=== PATIENT | female | born 1955 | race Caucasian/White ===

== ENCOUNTER 2019-01-13 09:55 | Inpatient (IN) | payer OTHER, SELFPAY ==
[2019-01-13] VITALS (7 sets, daily range): BP systolic 101–152; BP diastolic 64–88; PULSE 66–77; RESP 14–18; TEMP 36.3–37.4; O2SAT 97–100; BMI 20.9
--- NOTE | 2019-01-13 10:22 | ED.ABDPAIN ---
HPI - Abdominal Pain General Chief Complaint: Abdominal Pain Stated Complaint: lower abd pain x7 days Time Seen by Provider: 01/13/19 09:58 Source: patient Mode of arrival: ambulatory Limitations: no limitations History of Present Illness HPI narrative: Patient is a 63-year-old female here for evaluation of approximately 7 days of bilateral lower abdomen pain. She states that she has not had any change in her bowel habits. No diarrhea. No vomiting. Symptoms were gradual onset. States she has had a colonoscopy in the past and was told that everything was ?okay ?she denies any urinary symptoms. She states that it does feel somewhat like when she has ovulated in the past but has been through menopause. No prior abdominal surgeries. Related Data Allergies Allergy/AdvReac Type Severity Reaction Status Date / Time Penicillins Allergy Mild Rash Verified 01/13/19 10:17 Sulfa (Sulfonamide Allergy Mild Rash Verified 01/13/19 10:17 Antibiotics) Review of Systems Constitutional Constitutional: Denies fever(s) ENT Ears, Nose, Mouth, and Throat: Denies vertigo and Denies dizziness Cardiovascular Cardiovascular: Denies chest pain and Denies dyspnea Respiratory Respiratory: Denies dyspnea Gastrointestinal Gastrointestinal: Reports abdominal pain, Denies change in bowel habits, Denies diarrhea, Denies nausea and Denies vomiting Genitourinary Genitourinary: Denies dysuria, Denies flank pain and Denies vaginal discharge Integumentary/Breasts Skin/Breast: Denies rash Neurologic Neurologic: Denies vertigo and Denies dizziness Hematologic/Lymphatic Hematologic/Lymphatic: Denies easy bleeding and Denies easy bruising [facility] Medical History Insomnia (Acute) Menopausal disorder (Acute) [place] fever (Acute) Surgical History H/O tubal ligation (Acute) Hx of LASIK (Acute) S/P ACL repair (Acute) S/P rotator cuff repair (Acute) Social History household members: spouse Smoking Status: Former smoker alcohol intake: current Social History household members: spouse Smoking Status: Former smoker alcohol intake: current Exam Initial Vital Signs Initial Vital Signs: Vital Signs Temperature 97.5 F L 01/13/19 10:00 Pulse Rate 77 01/13/19 10:00 Respiratory Rate 16 01/13/19 10:00 Blood Pressure 152/85 H 01/13/19 10:00 Pulse Oximetry 97 01/13/19 10:00 Const General: cooperative, comfortable and well developed Orientation: alert, awake and oriented x3 HENMT Head: normal to inspection and normocephalic Resp Effort & Inspection: normal respiratory effort Auscultation: clear to auscultation bilaterally Cardio Rate: regular rate Rhythm: regular rhythm GI Inspection: non-distended Palpation: soft, No firm and tender (Bilateral lower abdomen) Back/Spine/Pelvis Back: No CVA tenderness Skin Lesions: lesions noted Rashes: rash noted Neuro General: alert and awake Cognition: normal cognition Speech: speech normal Extrem General: normal to inspection, capillary refill normal and No edema Psych Appearance: grossly normal and well kempt Course Orders Ordered: ED Orders 01/13/19 10:10 EKG-12 Lead Stat 01/13/19 10:23 CT abdomen pelvis w con Stat 01/13/19 11:20 Complete Blood Count AUTO DIFF Stat Comprehensive Metabolic Panel Stat Lipase Stat 01/13/19 13:18 Consult to General Surgery Routine Acetaminophen (Tylenol) 650 mg PO Q6HR PRN PRN Reason: As Needed for Fever/Mild Pain Bupropion HCl (Wellbutrin Sr) 150 mg PO DAILY [facility] Gabapentin (Neurontin) 300 mg PO BEDTIME [place] Ciprofloxacin (Cipro) 400 mg in 200 mls @ 200 mls/hr IV NOW [facility] Last Admin: 01/13/19 14:59 Dose: 200 mls/hr Documented by: CWOOD Sodium Chloride (Normal Saline 0.9%) 1,000 mls @ 125 mls/hr IV CONT [place] Last Admin: 01/13/19 14:30 Dose: 125 mls/hr Documented by: CWOOD Metronidazole (Flagyl) 500 mg in 100 mls @ 100 mls/hr IV Q8H [facility] Discontinued Medications Enoxaparin Sodium (Lovenox) 40 mg SUBCUT DAILY [facility] Sodium Chloride (Normal Saline 0.9%) 1,000 mls @ 1,000 mls/hr IV [facility] ONE Stop: 01/13/19 11:22 Last Infusion: 01/13/19 12:16 Dose: 0 mls/hr Documented by: Admin: 01/13/19 11:20 Dose: 1,000 mls/hr Documented by: AYSE Metronidazole (Flagyl) 500 mg in 100 mls @ 100 mls/hr IV NOW ONE Stop: 01/13/19 14:15 Last Infusion: 01/13/19 13:49 Dose: 0 mls/hr Documented by: Admin: 01/13/19 13:29 Dose: 100 mls/hr Documented by: SERGE Vital Signs Vital signs: Vital Signs - 8 hr 01/13/19 11:09 01/13/19 12:55 Pulse Rate 68 66 Respiratory Rate 17 14 Blood Pressure [Right Arm] 131/88 134/75 Pulse Oximetry 100 99 MDM - Abdominal Pain Lab Data Attestation: I reviewed the patient's lab results. Result diagrams: 01/13/19 11:20 01/13/19 11:20 Labs: Lab Results 01/13/19 01/13/19 01/13/19 Range/Units 11:20 11:20 11:20 WBC 9.1 (4.5-11.0) X10^3/uL RBC 4.18 (4.0-5.2) X10^6/uL Hgb 12.7 (12.0-16.0) g/dL Hct 37.0 (36-46) % MCV 88.5 (80-100) fL MCH 30.3 (26-34) PG MCHC 34.2 (30-36) % RDW 13.7 (11.6-14.8) % Plt Count 318 (150-400) X10^3/uL Neut % (Auto) 66.4 (50-75) % Lymph % (Auto) 20.1 L (25-40) % [place] % (Auto) 10.0 (3-14) % Eos % (Auto) 2.8 (2-4) % Baso % (Auto) 0.7 (0-2) % Neut # (Auto) 6100 (3491-5912) /uL Lymph # (Auto) 1800 (9058-7622) /uL [place] # (Auto) 900 (0-900) /uL Eos # (Auto) 300 (0-450) /uL Baso # (Auto) 100 (0-100) /uL PT Cancelled INR Cancelled APTT Cancelled Sodium 135 L (137-145) mmol/L Potassium 4.3 (3.4-5.1) mmol/L Chloride 95 L (98-107) mmol/L Carbon Dioxide 29 (22-32) mmol/L BUN 9 (7-17) mg/dL Creatinine 0.60 (0.52-1.04) mg/dL Estimated GFR > 60.0 (>60) mL/min BUN/Creatinine Ratio 15.0 (6-22) Glucose 99 (80-110) mg/dL Calcium 9.4 (8.4-10.2) mg/dL Total Bilirubin 0.6 (0.2-1.3) mg/dL AST 25 (14-36) IU/L ALT 14 (9-52) IU/L Alkaline Phosphatase 76 (38-126) U/L Total Protein 7.7 (6.3-8.2) g/dL Albumin 4.4 (3.5-5.0) g/dL Globulin 3.3 (1.7-4.1) g/dL Albumin/Globulin Ratio 1.3 (1.0-2.8) Lipase 70 (23-300) U/L Point of care testing: Urine Dip Bedside Urine Glucose Negative Bedside Urine Bilirubin - Negative Bedside Urine Ketone - Negative Urine Specific [place] 1.010 Bedside Urine Occult Blood - Negative Bedside Urine pH 8.0 Bedside Urine Protein - Negative Bedside Urine Urobilinogen - Negative Bedside Urine Nitrite - Negative Bedside Urine Leukocytes - Negative Esterase Imaging Data CT scan - abdomen: Radiologist's impression: [place] [address] CT Scan Report Signed Patient: Jacki Chin [facility]#: [id number] : [id number] Age/Sex: 63 / FDate of Service: 01/13/19 Loc: ED Accession Number: [id number] Procedure: CT abdomen pelvis w con Ordering Provider: Jared Paulino D.O. PROCEDURE: CT ABDOMEN PELVIS W CON INDICATIONS: Lower abdominal pain TECHNIQUE: After the administration of intravenous contrast, 5 mm thick sections acquired from the diaphragm to the symphysis. 5 mm coronal and sagittal reformats were acquired. For radiation dose reduction, the following was used: automated exposure control, adjustment of mA and/or kV according to patient size. COMPARISON: None. FINDINGS: Image quality: Excellent. ABDOMEN: Lung bases: Lung bases are clear. Heart size is normal. Solid organs: Liver is normal in size and enhancement. Low-density liver cysts are seen. Incidental note is made of focal fatty infiltration adjacent to the falciform ligament, which is not regarded to be pathologic. Gallbladder wall is not thickened. Biliary system is non dilated. Pancreas enhances normally. Spleen is normal in size and enhancement. No adrenal nodules. Kidneys demonstrate normal size and enhancement, without hydronephrosis. Peritoneum and bowel: Focal wall thickening is seen involving the sigmoid colon, with moderate surrounding inflammatory change. There is an extraluminal focus of fluid seen and a focal inflammatory change of hyperenhancement, as on series 4 image 46 and on series 2 image 65 that measures up to 2.2 cm. No free air is seen. No dilated loops of small bowel are seen. Nodes and vessels: No retroperitoneal or mesenteric adenopathy by size criteria. Aorta and inferior vena cava are normal in size. Miscellaneous: A mild periumbilical hernia is seen, containing fat. PELVIS: Genitourinary: Bladder wall thickness is normal. Miscellaneous: No inguinal hernias or adenopathy. Bones: No suspicious bony lesions. No vertebral body compression fractures. Mild dextroconvex scoliotic curvature is seen. Age-appropriate bony degenerative changes are seen. IMPRESSION: Sigmoid diverticulitis is seen. There is a 2.2 cm area adjacent to the sigmoid colon that is believed to represent a contained perforation. Differential diagnosis includes a small abscess. When clinically appropriate (following adequate treatment of the patient's current clinical episode) a colonoscopy is recommended for further evaluation for a potential underlying mass (if not already recently done). Incidental note is made of: Liver cysts Small fat containing periumbilical hernia Dextroconvex scoliotic curvature Dictated by: Herbie Quintero M.D. on 01/13/2019 at 11:25 Approved by: Herbie Quintero M.D. on 01/13/2019 at 11:30 ECG Data Attestation: I personally reviewed and interpreted this ECG as follows: Prior ECG tracings: not available for review Interpretation: Sinus rhythm Ventricular rate is 68 Normal axis Normal QRS Normal QTC No ST T wave changes MDM Narrative Medical decision making narrative: Patient is nontoxic appearing. Does not have an elevated white count. The CT scan does show sigmoid diverticulitis with the potential very small abscess versus contained perforation. I do suspect this is the cause of her symptoms. I did discuss the case with Dr. Mancera with General surgery who will admit. Patient is allergic to penicillin and sulfa so Cipro and Flagyl was ordered for antibiotic coverage. I did discuss the diagnosis with the patient and her who are at bedside. Did discuss the admission. She expressed understanding and agreement plan. Discharge Plan Departure Patient Disposition: Admitted As Inpatient Clinical Impression: Diverticulitis Discharge Date/Time: 01/13/19 13:49 Admit Date/Time: 01/13/19 13:31 Admit Provider: Ayan Connolly
--- NOTE | 2019-01-13 10:43 | PC.NURSE ---
Attempts x2 for IV start. Unsuccessful
[2019-01-13] MEDS: SODIUM CHLORIDE 0.9% 1,000 ML 1000 ML IV (11:20)
[2019-01-13 11:30] LABS: Add Manual Diff / Slide Review NO; Basophils Absolute Auto 100 /uL (0-100); Basophils Percent Auto 0.7 % (0-2); Eosinophils Absolute Auto 300 /uL (0-450); Eosinophils Percent Auto 2.8 % (2-4); Hemoglobin 12.7 g/dL (12.0-16.0); Lymphocytes Absolute Auto 1800 /uL (1100-4500); Lymphocytes Percent Auto 20.1 % (25-40); Mean Corpuscular HGB Conc 34.2 % (30-36); Mean Corpuscular Hemoglobin 30.3 PG (26-34); Mean Corpuscular Volume 88.5 fL (80-100); Monocytes Absolute Auto 900 /uL (0-900); Neutrophils Absolute Auto 6100 /uL (1500-7000); Neutrophils Percent Auto 66.4 % (50-75); Platelet Count 318 X10^3/uL (150-400); Red Blood Cell Count 4.18 X10^6/uL (4.0-5.2); Red Cell Distribution Width 13.7 % (11.6-14.8); White Blood Cell Count 9.1 X10^3/uL (4.5-11.0)
[2019-01-13 11:40] LABS: Alanine Aminotransferase 14 IU/L (9-52); Albumin 4.4 g/dL (3.5-5.0); Albumin Globulin Ratio 1.3 (1.0-2.8); Alkaline Phosphatase 76 U/L (38-126); Aspartate Aminotransferase 25 IU/L (14-36); Bilirubin Total 0.6 mg/dL (0.2-1.3); Blood Urea Nitrogen 9 mg/dL (7-17); Calcium 9.4 mg/dL (8.4-10.2); Carbon Dioxide 29 mmol/L (22-32); Chloride 95 mmol/L (98-107); Estimated Glomerular Filt Rate > 60.0 mL/min (>60); Globulin 3.3 g/dL (1.7-4.1); Glucose 99 mg/dL (80-110); HEMOLYSIS < 15 (0-50); Lipase 70 U/L (23-300); Potassium 4.3 mmol/L (3.4-5.1); Sodium 135 mmol/L (137-145); Total Protein 7.7 g/dL (6.3-8.2)
[2019-01-13] MEDS: metroNIDAZOLE 500 MG/100 ML PIGGYBACK 100 MG IV ×2 (13:29→20:15)
[2019-01-13] MEDS: SODIUM CHLORIDE 0.9% 1,000 ML 125 ML IV (14:30)
[2019-01-13] MEDS: CIPROFLOXACIN 400 MG/200 ML PIGGYBACK 200 MG IV (14:59)
--- NOTE | 2019-01-13 15:24 | PC.NURSE ---
Admitted 63 y/o f to room 216. Pt denies any pain at present, no nausea. IVF started, flagyl completed, cipro started. Does have some money and her purse with her but declined to lock it up in the safe. Pt made comfortable. Discussed npo status and pt reported she was told in ED she could have fluids. Dr. Connolly called to clarify status, she is to remain npo for now. Same explained to patient. She verb understanding. Resting quietly in bed at the moment. Cont w/poc.
--- NOTE | 2019-01-13 18:32 | PM.HP.1 ---
History of Present Illness History of Present Illness Date Patient Seen: 01/13/19 Time Patient Seen: 18:32 Chief complaint: lower abd pain x7 days Narrative: 63-year-old female admitted to the hospital with complicated diverticulitis. She has had bilateral lower abdominal pain for the past 7 days and as it was failing to improve she presented to the emergency room today where she underwent a CT of her abdomen pelvis which demonstrated sigmoid diverticulitis with an associated 2 cm pericolonic abscess no free air. On admission her white blood cell count was normal she was afebrile and which she was in mild amount of pain worsened with bowel movements and passing gas. She has never had a prior episode of diverticulitis. Her last colonoscopy was within the past 1 year and per her report was normal. She has no history of intestinal cancer or inflammatory bowel disease. She denies fever chills nausea vomiting. Patient History Medical History Insomnia (Acute) Menopausal disorder (Acute) [place] fever (Acute) Surgical History H/O tubal ligation (Acute) Hx of LASIK (Acute) S/P ACL repair (Acute) S/P rotator cuff repair (Acute) Social History household members: spouse Smoking Status: Former smoker alcohol intake: current Family & Social History Social History: household members spouse Prior Living Arrangements House Safety & Behavioral: Feels Safe in Current Yes Environment Been Physically Hurt or No Threatened By a Person Suicidal Ideation Description None Suicide Plan Description No Plan Tobacco & Substance use: Smoking Status Former smoker alcohol intake current alcohol intake frequency 0-2 drinks per day Substance Use Type does not use Meds Home Medications and Allergies Allergies Allergy/AdvReac Type Severity Reaction Status Date / Time Penicillins Allergy Mild Rash Verified 01/13/19 10:17 Sulfa (Sulfonamide Allergy Mild Rash Verified 01/13/19 10:17 Antibiotics) Review of Systems Review of Systems Narrative: General-no weight loss, fever or chills Head and Neck-no change in voice, no neck swelling Pulmonary-no cough, no shortness of breath at rest, no wheezing Cardiac-no syncope, claudication, palpitations or lower extremity edema Gastrointestinal-no nausea or vomiting, no abdominal distention, change in bowel habits, or jaundice Genitourinary-no hematuria or dysuria Hematology-no hypercoagulability, no abnormal bleeding or bruising Neurological-No seizures, new weakness or dizziness Endocrine-no diabetes, no thyroid or adrenal disorders Psychiatric-no anxiety, depression or substance abuse disorder Exam Vital Signs (past 8 hours): - 01/13/19 11:09 01/13/19 12:55 01/13/19 14:11 Temperature 97.9 F Pulse Rate 68 66 77 Respiratory Rate 17 14 18 Blood Pressure 114/64 Blood Pressure [Right Arm] 131/88 134/75 Pulse Oximetry 100 99 99 01/13/19 15:15 Temperature 97.7 F Pulse Rate 68 Respiratory Rate 17 Blood Pressure 128/79 Blood Pressure [Right Arm] Pulse Oximetry 100 Oxygen Delivery Method Room Air Oxygen Flow Rate 0 Narrative Exam Narrative: General-adult female no acute distress, well nourished HEENT-moist mucous membranes, no scleral icterus Neck-supple with full range of motion, no lymphadenopathy Chest- no labored respirations, clear to auscultation bilaterally Cardiac-regular rate and rhythm Abdomen-soft,no peritonitis, mild tenderness LLQ and RRQ Extremities-no edema, warm well perfused Neurological-alert and oriented x 3. No focal deficits Skin-normal temperature and turgor, no rashes or ulcers Objective Labs Result Diagrams: 01/13/19 11:20 01/13/19 11:20 Labs: Laboratory Results - last 24 hr 01/13/19 01/13/19 01/13/19 11:20 11:20 11:20 WBC 9.1 RBC 4.18 Hgb 12.7 Hct 37.0 MCV 88.5 MCH 30.3 MCHC 34.2 RDW 13.7 Plt Count 318 Neut % (Auto) 66.4 Lymph % (Auto) 20.1 L [place] % (Auto) 10.0 Eos % (Auto) 2.8 Baso % (Auto) 0.7 Neut # (Auto) 6100 Lymph # (Auto) 1800 [place] # (Auto) 900 Eos # (Auto) 300 Baso # (Auto) 100 PT Cancelled INR Cancelled APTT Cancelled Sodium 135 L Potassium 4.3 Chloride 95 L Carbon Dioxide 29 BUN 9 Creatinine 0.60 Estimated GFR > 60.0 BUN/Creatinine Ratio 15.0 Glucose 99 Calcium 9.4 Total Bilirubin 0.6 AST 25 ALT 14 Alkaline Phosphatase 76 Total Protein 7.7 Albumin 4.4 Globulin 3.3 Albumin/Globulin Ratio 1.3 Lipase 70 Assessment & Plan Assessment and plan (1) Diverticulitis: Current visit: Yes Status: Acute Assessment & Plan narrative: 63-year-old female with 1st episode of complicated diverticulitis nontoxic. I reviewed her CT abdomen and pelvis which demonstrates sigmoid diverticulitis with an associated pericolonic abscess of 2 cm. Afebrile without leukocytosis is mild abdominal pain no peritonitis. Previous colonoscopy within the past 1 year normal. Plan Clear liquid diet Ciprofloxacin and Flagyl, penicillin allergy If pain remains minimal tomorrow will start on regular diet and plan to discharge 01/14 [facility] for DVT prophylaxis
[2019-01-13] MEDS: GABAPENTIN 300 MG CAPSULE PO (20:15)
--- NOTE | 2019-01-13 21:53 | PC.NURSE ---
A&OX3. 99%RA. denied pain or nausea. Dr. Connolly gave verbal order for clear liquid today. independent in her room. IVF. call light in reach.
--- NOTE | 2019-01-13 23:35 | PC.NURSE ---
Addendum entered by Delfina Us R.N. 01/14/19 05:11: States she hasn't been able to sleep all night as can only sleep on her stomach and hospital bed is not conducive to that as is too hard. States pain is only an issue if she has a bowel movement, passes flatus or goes for a long walk and then is uncomfortable. Offered Tylenol but states that does not help and denies need for any pain medication at this time. Is taking good po fluids. Original Note: Patient is alert and oriented. Breath sounds CTA with RA sat of 99%. HRR. Denies nausea. BT present and is passing flatus. Abdomen is soft but tender in bilateral lower quads. Currently denies pain but states it is intermittent with movement or passing flatus. Independent with mobility. Refusing SCD's despite information re: DVT prevention; reminded to ankle wave. Fall risk score is low.
[2019-01-14] MEDS: SODIUM CHLORIDE 0.9% 1,000 ML 125 ML IV (00:14)
[2019-01-14 04:00] VITALS: BP 101/64; PULSE 75; RESP 15; TEMP 37.1; O2SAT 96
[2019-01-14] MEDS: metroNIDAZOLE 500 MG/100 ML PIGGYBACK 100 MG IV (05:07)
[2019-01-14 05:34] LABS: Add Manual Diff / Slide Review NO; Basophils Absolute Auto 100 /uL (0-100); Basophils Percent Auto 0.9 % (0-2); Eosinophils Absolute Auto 300 /uL (0-450); Eosinophils Percent Auto 2.8 % (2-4); Hematocrit 35.7 % (36-46); Hemoglobin 12.2 g/dL (12.0-16.0); Lymphocytes Absolute Auto 1400 /uL (1100-4500); Lymphocytes Percent Auto 14.7 % (25-40); Mean Corpuscular Hemoglobin 30.2 PG (26-34); Mean Corpuscular Volume 88.9 fL (80-100); Monocytes Absolute Auto 800 /uL (0-900); Monocytes Percent Auto 7.9 % (3-14); Neutrophils Absolute Auto 7100 /uL (1500-7000); Neutrophils Percent Auto 73.7 % (50-75); Platelet Count 307 X10^3/uL (150-400); Red Blood Cell Count 4.02 X10^6/uL (4.0-5.2); Red Cell Distribution Width 13.5 % (11.6-14.8); White Blood Cell Count 9.7 X10^3/uL (4.5-11.0)
[2019-01-14 07:40] VITALS: BP 100/43; PULSE 71; RESP 16; TEMP 36.9; O2SAT 98
--- NOTE | 2019-01-14 08:02 | PC.NURSE ---
Day shift: Refused SCd's. Instructed to move BLE's figure 8's. Pt said she would. Call light in reach. Independent in room. BT's present. Reports minimal pain. Denies nausea.
--- NOTE | 2019-01-14 08:22 | PM.DS.1 ---
History of Present Illness History of Present Illness Chief complaint: lower abd pain x7 days Narrative: 63-year-old female admitted to the hospital with complicated diverticulitis. She has had bilateral lower abdominal pain for the past 7 days and as it was failing to improve she presented to the emergency room today where she underwent a CT of her abdomen pelvis which demonstrated sigmoid diverticulitis with an associated 2 cm pericolonic abscess no free air. On admission her white blood cell count was normal she was afebrile and which she was in mild amount of pain worsened with bowel movements and passing gas. She has never had a prior episode of diverticulitis. Her last colonoscopy was within the past 1 year and per her report was normal. She has no history of intestinal cancer or inflammatory bowel disease. She denies fever chills nausea vomiting. Discharge Providers Provider Date of admission: 01/13/19 13:31 Discharge Date: 01/14/19 Consults: 01/13/19 13:18 Consult to General Surgery Routine Comment: Consulting Provider: Ayan Connolly Reason for consultation: admission Has provider been notified: Yes Discharge provider: Ayan Connolly MD Summary Hospital Course Discharge Diagnosis: complicated diverticulitis Hospital Course: 63 y.o old female with 1st episode of complicated diverticulitis was admitted to the hospital 01/13/2019. At admission she was afebrile, white blood cell count 9 minimally tender, CT abdomen pelvis demonstrated a 2 cm pericolonic abscess no free air. She was treated with ciprofloxacin and Flagyl and her diet was advanced. On the date of discharge 01/14/2019 the patient is well. She has tolerated a regular diet is ambulatory and not requiring pain narcotic medication. She has minimal pain improved from admission. She is afebrile. Repeat CBC demonstrates a white blood cell count of 9. She is stable for discharge at this time with a course of p.o. levofloxacin and Flagyl for 10 days. Status at Discharge Cognitive/behavioral status at discharge: oriented Functional status at discharge: independent ambulation Overall status at discharge: patient is back to baseline Time Spent with Patient Time spent: Greater than 30 minutes Exam Vital Signs (past 8 hours): - 01/14/19 04:00 01/14/19 07:40 Temperature 98.7 F 98.5 F Pulse Rate 75 71 Respiratory Rate 15 16 Blood Pressure 101/64 100/43 L Pulse Oximetry 96 98 Oxygen Delivery Method Room Air Oxygen Flow Rate 0 Narrative Exam Narrative: General-adult female no acute distress, well nourished HEENT-moist mucous membranes, no scleral icterus Neck-supple with full range of motion, no lymphadenopathy Chest- no labored respirations, clear to auscultation bilaterally Cardiac-regular rate and rhythm Abdomen-soft, minimally tender LLQ, non distended Extremities-no edema, warm well perfused Neurological-alert and oriented x 3. No focal deficits Skin-normal temperature and turgor, no rashes or ulcers Objective Labs Result Diagrams: 01/14/19 05:15 01/13/19 11:20 Labs: Laboratory Results - last 24 hr 01/13/19 01/13/19 01/13/19 11:20 11:20 11:20 WBC 9.1 RBC 4.18 Hgb 12.7 Hct 37.0 MCV 88.5 MCH 30.3 MCHC 34.2 RDW 13.7 Plt Count 318 Neut % (Auto) 66.4 Lymph % (Auto) 20.1 L [place] % (Auto) 10.0 Eos % (Auto) 2.8 Baso % (Auto) 0.7 Neut # (Auto) 6100 Lymph # (Auto) 1800 [place] # (Auto) 900 Eos # (Auto) 300 Baso # (Auto) 100 PT Cancelled INR Cancelled APTT Cancelled Sodium 135 L Potassium 4.3 Chloride 95 L Carbon Dioxide 29 BUN 9 Creatinine 0.60 Estimated GFR > 60.0 BUN/Creatinine Ratio 15.0 Glucose 99 Calcium 9.4 Total Bilirubin 0.6 AST 25 ALT 14 Alkaline Phosphatase 76 Total Protein 7.7 Albumin 4.4 Globulin 3.3 Albumin/Globulin Ratio 1.3 Lipase 70 01/14/19 05:15 WBC 9.7 RBC 4.02 Hgb 12.2 Hct 35.7 L MCV 88.9 MCH 30.2 MCHC 34.0 RDW 13.5 Plt Count 307 Neut % (Auto) 73.7 Lymph % (Auto) 14.7 L [place] % (Auto) 7.9 Eos % (Auto) 2.8 Baso % (Auto) 0.9 Neut # (Auto) 7100 H Lymph # (Auto) 1400 [place] # (Auto) 800 Eos # (Auto) 300 Baso # (Auto) 100 PT INR APTT Sodium Potassium Chloride Carbon Dioxide BUN Creatinine Estimated GFR BUN/Creatinine Ratio Glucose Calcium Total Bilirubin AST ALT Alkaline Phosphatase Total Protein Albumin Globulin Albumin/Globulin Ratio Lipase Discharge Plan Discharge Plan Patient Disposition: Home Discharge comment: Diverticulitis Discharge Med Rec/Prescriptions Prescriptions: New acetaminophen 325 mg Tablet 650 mg PO Q6HR PRN (Reason: As Needed For Fever/Mild Pain) Qty: 60 RF: 0 levofloxacin 750 mg tablet 750 mg PO DAILY Qty: 10 RF: 0 metronidazole [Flagyl] 500 mg tablet 500 mg PO Q8H Qty: 30 RF: 0 Continued bupropion HCl [Wellbutrin SR] 150 mg Tablet Sustained-Release 12 Hr 150 mg PO DAILY RF: 0 gabapentin 600 mg Tablet 600 mg PO BEDTIME RF: 0 Follow up/Referrals: Ayan Connolly MD [Physician] - 2 Weeks Provider Discharge Instructions Diet: Regular Skin/Wound/Dressing Care Report to your healthcare provider any signs of infection, such as:: chills, fever and increased pain Visit Report/Discharge Packet Instructions: Diverticulitis
[2019-01-14] MEDS: buPROPion SR 150 MG TAB PO (08:32)
--- NOTE | 2019-01-14 10:59 | CM.DANOTE ---
DCP: assessment: case received, EMR reviewed and discussed case in Team Rounds. RN coordinator noted that pt has been ok'd for a d/c to home setting as long as she tolerated a meal. Met now with pt. She was found lying on her bed, dressed, items packed in readiness for d/c. Introduced self and role. Pt is a 63 year old female who admitted to care of [place] Surgeons team: Dr. Connolly seeing pt. PCP: at [facility] primarily and also sees a provider is [place]. Payer: [facility] Pt says she is pleased that she is able to go home, says she did well with her meal. She is waiting for the dc paperwork to be completed and then her will be taking pt home.
== END 2019-01-14 13:45 | disposition home or self-care (01) | DRG 392 ==
LOC: ED 13:14 → AC 13:32
PROVIDERS: Admitting Provider Surgery; Emergency Provider Emergency Medicine; Visit Provider Surgery
DX: K57.32 Diverticulitis of large intestine without perforation or abscess without bleeding (principal)
CPT/HCPCS: 36415; 36591; 74177; 80053; 81003; 83690; 85025; 93005; 96361; 96365; 99221; 99238; 99283; 99285; J0744; Q9967